=== PATIENT | male | born 1955 | race Caucasian/White ===

== ENCOUNTER 2018-05-03 11:00 | Outpatient (CLI) | payer OTHER ==
--- NOTE | 2018-05-03 13:25 | RAD ---
LUMBAR SPINE 2 VIEWS: HISTORY: Disability claim. COMPARISON: Radiograph 2010. FINDINGS: Severe degenerative changes of the lumbar spine. There is unchanged appearance of the posterior spin al fusion from L4-S1 with intact hardware. There are also anterior screws at L4-5 and L5-S1, similar at the disk spaces. No hardware fracture is appreciated. No acute lumbar spine fracture or malalignment. Severe degenerative disk space height loss at L2-3, L1-2, and T12-L1. IMPRESSION: Chronic findings. No acute abnormality. Severe degenerative change. POS: [facility]
== END 2018-05-03 11:01 | disposition home or self-care (01) ==
LOC: BICRAD 11:00
PROVIDERS: ATTEND Internal Medicine
DX: Z02.71 Encounter for disability determination (principal); M47.816 Spondylosis without myelopathy or radiculopathy, lumbar region; Z98.1 Arthrodesis status
CPT/HCPCS: 72100

== ENCOUNTER 2023-02-14 11:59 | Observation (INO) | payer MEDICARE, SELFPAY ==
[~2023-02-14 11:59] MED LIST: Iopamidol-370 76% 500 ML MDV (1 ML CHARGE) ONE
[2023-02-14] MEDS ORDERED: Acetaminophen 325 MG TAB ONE ×2 (13:08→16:58)
[2023-02-14] MEDS ORDERED: Aspirin Chewable 81 MG TAB ONE (13:08)
[2023-02-14 13:13] LABS: #Eosinphils 0.2 thou/uL (0.0-0.7); #Monocytes 0.6 thou/uL (0.11-0.59); %Basophils 0.5 % (0.0-1.0); %Eosinophils 2.8 % (0.0-10.0); %Lymphocytes 32.3 % (21.0-51.0); %Monocytes 10.6 % (0.0-10.0); %Neutrophils 53.6 % (42.0-75.0); Hematocrit 36.9 % (42.0-52.0); Hemoglobin 12.2 g/dL (14.0-18.0); Mean Corpuscular HGB CONC 33.1 g/dL (32.0-36.0); Mean Corpuscular Hemoglobin 30.4 pg (27.0-31.0); Mean Platelet Volume 11.4 fL (7.4-10.4); Platelet Count 150 10x3/uL (130-400); Red Blood Cell (RBC) Count 4.01 mill/uL (4.70-6.10); White Blood Cell (WBC) Count 5.7 10x3/uL (4.8-10.8)
[2023-02-14 13:36] LABS: Actual Bicarbonate (HCO3v) 24.9 mEq/L (22-28); Base Excess 0.5 mEq/L (-2.0 to +3.0); Chloride (VBG) 103 mmol/L (98-106); Hematocrit-VBG 39 % (42.0-52.0); Hemoglobin (Hb) 13.1 g/dL (12.6-17.4); Potassium (VBG) 4.27 mmol/L (3.70-5.30); Sodium 138 mmol/L (133-146); pH (venous) 7.421 (7.32-7.43)
[2023-02-14 13:41] LABS: ALT (SGPT) 36 U/L (8-55); AST (SGOT) 26 U/L (5-34); Albumin 4.2 g/dL (3.4-4.8); Alkaline Phosphatase 54 U/L (40-110); Anion Gap 13 mmol/L (10-20); BUN (Urea Nitrogen) 34 mg/dL (8.4-25.7); Bilirubin, Total 0.5 mg/dL (0.2-1.2); Calc. Creatinine Clearance 0 mL/min (70-130); Carbon Dioxide 23 mmol/L (23-31); Chloride 104 mmol/L (98-107); Estimated GFR 53; Globulin 2.8 g/dL (2.4-3.5); Glucose 284 mg/dL (80-115); Magnesium 1.9 mg/dL (1.6-2.6); Potassium 3.9 mmol/L (3.5-5.1); Sodium 136 mmol/L (136-145)
[2023-02-14 13:47] LABS: Bacteria/HPF 1+ HPF (None Seen); Bilirubin Negative (Negative); Blood, Urine Negative (Negative); CAUTI Indications for Culture Pelvic or flank pain; Clarity Clear (Clear); Glucose, Urine (Dipstick) Greater than 1000 mg/dL (Negative); Ketone, Urine Negative (Negative); Leukocyte Negative Leu/uL (Negative); Nitrite Negative (Negative); Protein, Urine (Dipstick) 20 mg/dL (Neg-Trace); RBC/HPF 0-3 HPF (0-3); Specific Gravity, Urine 1.023 (1.002-1.036); Squamous Epithelial None Seen HPF (0-3); Urobilinogen Normal mg/dL (Less than 2); WBC/HPF 0-3 HPF (0-3); pH, Urine 5.5 (5.0-9.0)
[2023-02-14 13:48] LABS: Urine Culture Reflex No No
[2023-02-14] MEDS ORDERED: Morphine 4 MG/ML VIAL ONE (13:49)
[2023-02-14] MEDS ORDERED: Nitroglycerin 0.4 MG TAB 1 EACH ONE (13:50)
[2023-02-14 14:01] LABS: Troponin I Less than 0.010 ng/mL (< 0.028)
[2023-02-14] MEDS ORDERED: Nitroglycerin 0.4 MG TAB (25 Tab Bottle) SL PRN (15:45)
[2023-02-14] MEDS ORDERED: Ondansetron ODT 4 MG TAB PO PRN (15:48)
[2023-02-14] MEDS ORDERED: Acetaminophen 325 MG TAB PO PRN (15:48)
[2023-02-14] MEDS ORDERED: Ondansetron PF 4 MG/2 ML Vial IVP PRN (15:48)
[2023-02-14] MEDS ORDERED: Glucagon 1 MG/ML KIT IM PRN (16:06)
[2023-02-14] MEDS ORDERED: HumaLOG 300 UNITS/3 ML VIAL SC PRN (16:06)
[2023-02-14] MEDS ORDERED: Dextrose 50% Abboject 50 ML SYRINGE SLOW IVP PRN (16:06)
[2023-02-14] MEDS ORDERED: Dextrose 5% in Water 1,000 ML IV PRN (16:06)
[2023-02-14 16:29] LABS: Hemoglobin A1c 11.8 % (4.0-6.0)
[2023-02-14 17:51] LABS: Troponin I Less than 0.010 ng/mL (< 0.028)
[2023-02-14] MEDS ORDERED: tiZANidine HCl 4 MG TAB PO SCH (19:30)
[2023-02-14] MEDS ORDERED: tiZANidine HCl 4 MG TAB ONE (19:57)
[2023-02-14 20:05] LABS: Troponin I 0.018 ng/mL (< 0.028)
[2023-02-14] MEDS: HYDROcodone/Acetaminophen 5/325 mg Tablet PO PRN (21:13)
[2023-02-14 23:57] VITALS: BMI 36.1
[2023-02-15] MEDS: HYDROcodone/Acetaminophen 5/325 mg Tablet PO PRN ×5 (02:31→20:55)
[2023-02-15 04:17] LABS: #Eosinphils 0.2 thou/uL (0.0-0.7); #Monocytes 0.4 thou/uL (0.11-0.59); #Neutrophils 1.9 thou/uL (1.40-6.50); %Basophils 0.5 % (0.0-1.0); %Lymphocytes 41.5 % (21.0-51.0); %Monocytes 10.1 % (0.0-10.0); %Neutrophils 43.7 % (42.0-75.0); Hematocrit 33.9 % (42.0-52.0); Hemoglobin 11.2 g/dL (14.0-18.0); Mean Corpuscular Hemoglobin 30.9 pg (27.0-31.0); Mean Corpuscular Volume 93.4 fl (78.0-98.0); Mean Platelet Volume 11.4 fL (7.4-10.4); Platelet Count 130 10x3/uL (130-400); RBC Distribution Width 13.9 % (11.5-14.5); Red Blood Cell (RBC) Count 3.63 mill/uL (4.70-6.10); White Blood Cell (WBC) Count 4.3 10x3/uL (4.8-10.8)
[2023-02-15 04:51] LABS: Anion Gap 13 mmol/L (10-20); BUN (Urea Nitrogen) 22 mg/dL (8.4-25.7); Calc. Creatinine Clearance 111 mL/min (70-130); Calcium 8.2 mg/dL (7.8-10.44); Carbon Dioxide 23 mmol/L (23-31); Cardiac Risk 4.4 (Less than 4.5); Chloride 104 mmol/L (98-107); Cholesterol 101 mg/dl (< 200 Desired); Estimated GFR 71; Glucose 296 mg/dL (80-115); HDL Cholesterol 23 mg/dL (>60 Neg Risk); LDL Cholesterol, Calculated 43 mg/dL; Potassium 3.9 mmol/L (3.5-5.1); Sodium 136 mmol/L (136-145); Triglycerides 173 mg/dL (Less than 150)
[2023-02-15] MEDS: Aspirin Chewable 81 MG TAB PO SCH (08:03)
[2023-02-15] MEDS: HumaLOG 300 UNITS/3 ML VIAL SC PRN (17:39)
[2023-02-16 05:46] LABS: #Eosinphils 0.2 thou/uL (0.0-0.7); #Monocytes 0.5 thou/uL (0.11-0.59); #Neutrophils 2.6 thou/uL (1.40-6.50); %Basophils 0.6 % (0.0-1.0); %Eosinophils 4.2 % (0.0-10.0); %Monocytes 10.1 % (0.0-10.0); %Neutrophils 51.7 % (42.0-75.0); Hematocrit 36.7 % (42.0-52.0); Hemoglobin 12.1 g/dL (14.0-18.0); Mean Corpuscular Hemoglobin 30.3 pg (27.0-31.0); Mean Platelet Volume 11.4 fL (7.4-10.4); RBC Distribution Width 13.7 % (11.5-14.5); Red Blood Cell (RBC) Count 3.99 mill/uL (4.70-6.10); White Blood Cell (WBC) Count 5.1 10x3/uL (4.8-10.8)
[2023-02-16 06:02] LABS: Platelet Count 138 10x3/uL (130-400)
[2023-02-16] MEDS: HumaLOG 300 UNITS/3 ML VIAL SC PRN (06:06)
[2023-02-16] MEDS: HYDROcodone/Acetaminophen 5/325 mg Tablet PO PRN (06:07)
[2023-02-16 06:12] LABS: Anion Gap 12 mmol/L (10-20); BUN (Urea Nitrogen) 12 mg/dL (8.4-25.7); Calc. Creatinine Clearance 141 mL/min (70-130); Calcium 8.5 mg/dL (7.8-10.44); Carbon Dioxide 24 mmol/L (23-31); Chloride 102 mmol/L (98-107); Estimated GFR 93; Glucose 186 mg/dL (80-115); Potassium 3.8 mmol/L (3.5-5.1); Sodium 134 mmol/L (136-145)
[2023-02-16] MEDS ORDERED: Metoprolol Tartrate 50 MG TAB PO SCH (09:00)
[2023-02-16] MEDS ORDERED: Gabapentin 300 MG CAP PO SCH (09:00)
[2023-02-16] MEDS ORDERED: hydrALAZINE 25 MG TAB PO SCH (09:00)
[2023-02-16] MEDS: Aspirin Chewable 81 MG TAB PO SCH (09:30)
[2023-02-16 11:55] VITALS: BP 151/83; TEMP 97.9
[2023-02-17] MEDS ORDERED: FLU VACC QS2023(65UP)/MF59C/PF 60 MCG/0.5 ML SYRINGE IM ONE (09:00)
== END 2023-02-16 12:45 | disposition left against medical advice (07) ==
LOC: ERS 11:59 → ERHOLD 15:40 → 2SW 20:42
PROVIDERS: ADMIT Internal Medicine; ATTEND Internal Medicine
DX: R07.9 Chest pain, unspecified (principal); I10 Essential (primary) hypertension; E66.9 Obesity, unspecified; E11.9 Type 2 diabetes mellitus without complications; Z98.1 Arthrodesis status; Z90.89 Acquired absence of other organs; Z79.82 Long term (current) use of aspirin; Z79.899 Other long term (current) drug therapy; F10.10 Alcohol abuse, uncomplicated; Z79.84 Long term (current) use of oral hypoglycemic drugs; Y90.9 Presence of alcohol in blood, level not specified
CPT/HCPCS: 71045; 71275; 78452; 80048 ×2; 80061; 81001; 82010; 82805; 82962 ×3; 83036; 83735; 84484 ×2; 85025 ×2; 93005; 93017; 93306; 94760 ×4; 96361; 96374; 99285; A9502; 36415; 36416; 80053; 84443; 96372; G0378; J0153; J1650; J2270; Q9967

== ENCOUNTER 2023-07-04 10:29 | Inpatient (IN) | payer MEDICARE, SELFPAY ==
[2023-07-04 11:30] LABS: #Eosinphils 0.3 thou/uL (0.0-0.7); #Monocytes 0.5 thou/uL (0.11-0.59); #Neutrophils 3.6 thou/uL (1.40-6.50); %Basophils 0.5 % (0.0-1.0); %Eosinophils 3.9 % (0.0-10.0); %Lymphocytes 30.6 % (21.0-51.0); %Neutrophils 56.5 % (42.0-75.0); Hematocrit 41.3 % (42.0-52.0); Hemoglobin 13.6 g/dL (14.0-18.0); Mean Corpuscular HGB CONC 32.9 g/dL (32.0-36.0); Mean Corpuscular Hemoglobin 29.6 pg (27.0-31.0); Mean Platelet Volume 11.8 fL (7.4-10.4); Platelet Count 177 10x3/uL (130-400); RBC Distribution Width 13.6 % (11.5-14.5); Red Blood Cell (RBC) Count 4.59 mill/uL (4.70-6.10); White Blood Cell (WBC) Count 6.4 10x3/uL (4.8-10.8)
[2023-07-04 11:57] LABS: ALT (SGPT) 53 U/L (8-55); AST (SGOT) 37 U/L (5-34); Alkaline Phosphatase 56 U/L (40-110); Anion Gap 14 mmol/L (10-20); BUN (Urea Nitrogen) 34 mg/dL (8.4-25.7); Bilirubin, Total 0.5 mg/dL (0.2-1.2); Calc. Creatinine Clearance 0 mL/min (70-130); Calcium 8.8 mg/dL (7.8-10.44); Carbon Dioxide 27 mmol/L (23-31); Chloride 104 mmol/L (98-107); Estimated GFR 55; Globulin 3.5 g/dL (2.4-3.5); Glucose 299 mg/dL (80-115); Potassium 4.5 mmol/L (3.5-5.1); Protein, Total 7.5 g/dL (5.8-8.1); Sodium 140 mmol/L (136-145)
[2023-07-04] MEDS ORDERED: Ketorolac Tromethamine 30 MG (1 mL) VIAL ONE (12:18)
[2023-07-04 12:49] LABS: Bilirubin Negative (Negative); Blood, Urine Negative (Negative); Glucose, Urine (Dipstick) >=1000 mg/dL (Negative); Ketone, Urine Negative (Negative); Leukocyte Negative (Negative); Nitrite Negative (Negative); Protein, Urine (Dipstick) Negative (Neg-Trace); Urobilinogen 0.2 mg/dL (Less than 2)
[2023-07-04 12:55] LABS: Clarity Clear (Clear)
[2023-07-04 12:57] LABS: Bacteria/HPF None Seen HPF (None Seen); CAUTI Indications for Culture Alt mental st,lethar; RBC/HPF 0-3 HPF (0-3); Squamous Epithelial 0-3 HPF (0-3); WBC/HPF 0-3 HPF (0-3)
[2023-07-04 13:03] LABS: Urine Culture Reflex No No
[2023-07-04] MEDS ORDERED: HYDROcodone/Acetaminophen 5/325 mg Tablet ONE (13:51)
[2023-07-04] MEDS ORDERED: Ondansetron ODT 4 MG TAB PO PRN (16:40)
[2023-07-04] MEDS ORDERED: hydrALAZINE 20 MG/ML VIAL SLOW IVP PRN (16:40)
[2023-07-04] MEDS ORDERED: Dextrose 5% in Water 1,000 ML IV PRN (16:57)
[2023-07-04] MEDS ORDERED: Glucagon 1 MG/ML KIT IM PRN (16:57)
[2023-07-04] MEDS ORDERED: Dextrose 50% Abboject 50 ML SYRINGE SLOW IVP PRN (16:57)
[2023-07-04] MEDS: HYDROcodone/Acetaminophen 7.5/325 mg Tablet PO PRN (19:41)
[2023-07-04] MEDS: Atorvastatin Calcium 40 MG TAB PO SCH (19:41)
[2023-07-04] MEDS: Aspirin Chewable 81 MG TAB PO SCH (19:41)
[2023-07-04] MEDS: Sodium Chloride 0.9% 1,000 ML IV SCH (19:41)
[2023-07-04] MEDS: Insulin Regular 300 UNITS/3 ML VIAL SC PRN (19:56)
[2023-07-04] MEDS: Methyl Salicylate/Menthol 85 GM TUBE TOP PRN (22:06)
[2023-07-04 23:14] VITALS: BMI 37.0
[2023-07-05 05:18] LABS: #Eosinphils 0.3 thou/uL (0.0-0.7); #Monocytes 0.5 thou/uL (0.11-0.59); #Neutrophils 2.3 thou/uL (1.40-6.50); %Basophils 0.5 % (0.0-1.0); %Eosinophils 4.8 % (0.0-10.0); %Lymphocytes 42.7 % (21.0-51.0); %Monocytes 9.3 % (0.0-10.0); %Neutrophils 42.2 % (42.0-75.0); Hematocrit 37.2 % (42.0-52.0); Hemoglobin 11.8 g/dL (14.0-18.0); Mean Corpuscular HGB CONC 31.7 g/dL (32.0-36.0); Mean Corpuscular Hemoglobin 29.1 pg (27.0-31.0); Mean Corpuscular Volume 91.9 fl (78.0-98.0); Mean Platelet Volume 11.8 fL (7.4-10.4); Platelet Count 132 10x3/uL (130-400); RBC Distribution Width 13.5 % (11.5-14.5); Red Blood Cell (RBC) Count 4.05 mill/uL (4.70-6.10); White Blood Cell (WBC) Count 5.5 10x3/uL (4.8-10.8)
[2023-07-05 05:35] LABS: Anion Gap 11 mmol/L (10-20); BUN (Urea Nitrogen) 28 mg/dL (8.4-25.7); Calc. Creatinine Clearance 108 mL/min (70-130); Calcium 8.5 mg/dL (7.8-10.44); Carbon Dioxide 26 mmol/L (23-31); Chloride 104 mmol/L (98-107); Cholesterol 78 mg/dl (< 200 Desired); Estimated GFR 66; Glucose 218 mg/dL (80-115); HDL Cholesterol 26 mg/dL (>60 Neg Risk); LDL Cholesterol, Calculated 28 mg/dL; Potassium 3.9 mmol/L (3.5-5.1); Sodium 137 mmol/L (136-145); Triglycerides 122 mg/dL (Less than 150)
[2023-07-05] MEDS: Insulin Regular 300 UNITS/3 ML VIAL SC PRN (06:15)
[2023-07-05] MEDS: Enoxaparin 40 MG (0.4 mL) SYRINGE SC SCH (08:43)
[2023-07-05] MEDS: Aspirin 81 mg Enteric Coated Tablet PO SCH (08:43)
[2023-07-05] MEDS: Lorazepam 2 MG/ML VIAL SLOW IVP SCH ×2 (15:12→15:20)
[2023-07-06] MEDS: HYDROcodone/Acetaminophen 7.5/325 mg Tablet PO PRN (01:15)
[2023-07-06 05:11] LABS: #Eosinphils 0.2 thou/uL (0.0-0.7); #Monocytes 0.5 thou/uL (0.11-0.59); #Neutrophils 2.4 thou/uL (1.40-6.50); %Basophils 0.6 % (0.0-1.0); %Eosinophils 4.1 % (0.0-10.0); %Lymphocytes 37.5 % (21.0-51.0); %Monocytes 9.3 % (0.0-10.0); %Neutrophils 48.1 % (42.0-75.0); Hematocrit 38.6 % (42.0-52.0); Hemoglobin 12.6 g/dL (14.0-18.0); Mean Corpuscular HGB CONC 32.6 g/dL (32.0-36.0); Mean Corpuscular Hemoglobin 29.6 pg (27.0-31.0); Mean Corpuscular Volume 90.8 fl (78.0-98.0); Mean Platelet Volume 11.8 fL (7.4-10.4); Platelet Count 133 10x3/uL (130-400); RBC Distribution Width 13.3 % (11.5-14.5); Red Blood Cell (RBC) Count 4.25 mill/uL (4.70-6.10); White Blood Cell (WBC) Count 5.1 10x3/uL (4.8-10.8)
[2023-07-06 05:36] LABS: Anion Gap 13 mmol/L (10-20); BUN (Urea Nitrogen) 15 mg/dL (8.4-25.7); Calc. Creatinine Clearance 130 mL/min (70-130); Calcium 8.3 mg/dL (7.8-10.44); Carbon Dioxide 23 mmol/L (23-31); Chloride 104 mmol/L (98-107); Estimated GFR 83; Glucose 168 mg/dL (80-115); Potassium 4.1 mmol/L (3.5-5.1); Sodium 136 mmol/L (136-145)
[2023-07-06] MEDS ORDERED: hydrOXYzine 25 MG TAB PO PRN (08:03)
[2023-07-06] MEDS: Gabapentin 300 MG CAP PO SCH (08:15)
[2023-07-06] MEDS: Metoprolol Tartrate 50 MG TAB PO SCH (08:16)
[2023-07-06] MEDS: Pregabalin 50 MG CAP PO SCH (08:26)
[2023-07-06] MEDS: hydrALAZINE 25 MG TAB PO SCH (08:26)
[2023-07-06] MEDS: Empagliflozin 25 MG TAB PO SCH (08:27)
[2023-07-06] MEDS ORDERED: Non-Formulary Item 1 EACH (Pregabalin [Lyrica] 100 MG Cap) PO SCH (09:00)
[2023-07-06] MEDS ORDERED: Non-Formulary Item 1 EACH (Hydralazine Hcl [Hydralazine Hcl] 50 MG Tablet) PO SCH (09:00)
[2023-07-06] MEDS ORDERED: Non-Formulary Item 1 EACH (Dapagliflozin Propanediol [Farxiga] 10 MG Tablet) PO SCH (09:00)
[2023-07-06 16:27] VITALS: TEMP 96
[2023-07-06 18:50] VITALS: BP 177/87
== END 2023-07-06 18:05 | DRG 556 ==
LOC: ERS 10:29 → ERHOLD 14:19 → 2SE 18:18 → OBSVTOIN 07-05 15:57
PROVIDERS: ADMIT Family Medicine; ATTEND Internal Medicine
DX: R29.898 Other symptoms and signs involving the musculoskeletal system (principal); M87.859 Other osteonecrosis, unspecified femur; B19.10 Unspecified viral hepatitis B without hepatic coma; N17.9 Acute kidney failure, unspecified; M16.0 Bilateral primary osteoarthritis of hip; F10.10 Alcohol abuse, uncomplicated; F40.240 Claustrophobia; E11.9 Type 2 diabetes mellitus without complications; E78.5 Hyperlipidemia, unspecified; G89.29 Other chronic pain; M54.12 Radiculopathy, cervical region; I10 Essential (primary) hypertension; Z88.5 Allergy status to narcotic agent; Z79.899 Other long term (current) drug therapy; Z79.84 Long term (current) use of oral hypoglycemic drugs; Z90.89 Acquired absence of other organs; Z98.890 Other specified postprocedural states; Z87.891 Personal history of nicotine dependence; Z91.81 History of falling
CPT/HCPCS: 36415; 36416; 70450; 71045; 72141; 72170; 80048; 80053; 80061; 81001; 84484; 85025; 93005; 93306; 96374; J1650; J1815; J1885; J2060; J7050

== ENCOUNTER → 2024-03-04 | Emergency (ER) | payer MEDICARE | LOC: ERS 14:11 | DX: Z53.21 Procedure and treatment not carried out due to patient leaving prior to being seen by health care provider (principal) | CPT/HCPCS: 71045 ==

== ENCOUNTER 2024-03-05 14:40 | Inpatient (IN) | payer MEDICARE ==
[2024-03-05] MEDS ORDERED: Iopamidol-370 76% 500 ML MDV (1 ML CHARGE) ONE (15:21)
[2024-03-05 15:28] LABS: #Basophils Less than 0.03 10x3/uL (0.0-0.2); %Basophils 0.2 % (0.0-1.0); %Eosinophils 1.1 % (0.0-10.0); %Lymphocytes 22.2 % (21.0-51.0); %Monocytes 9.1 % (0.0-10.0); %Neutrophils 67.2 % (42.0-75.0); Hematocrit 40.3 % (42.0-52.0); Hemoglobin 13.7 g/dL (14.0-18.0); Mean Corpuscular Hemoglobin 29.8 pg (27.0-31.0); Mean Corpuscular Volume 87.8 fL (78.0-98.0); Mean Platelet Volume 11.1 fL (7.4-10.4); Platelet Count 193 10x3/uL (130-400); RBC Distribution Width 12.8 % (11.5-14.5); Red Blood Cell (RBC) Count 4.59 mill/uL (4.70-6.10)
[2024-03-05 15:44] LABS: CRP,High Sensitivity (Inhouse) 6.11 mg/dL (< or = 0.5)
[2024-03-05 15:45] LABS: ALT (SGPT) 33 U/L (8-55); AST (SGOT) 30 U/L (5-34); Albumin 3.7 g/dL (3.4-4.8); Alkaline Phosphatase 55 U/L (40-110); Anion Gap 14 mmol/L (10-20); BUN (Urea Nitrogen) 17 mg/dL (8.4-25.7); Calc. Creatinine Clearance 0 mL/min (70-130); Calcium 9.4 mg/dL (7.8-10.44); Carbon Dioxide 22 mmol/L (23-31); Chloride 101 mmol/L (98-107); Estimated GFR 76; Globulin 4.2 g/dL (2.4-3.5); Glucose 227 mg/dL (83-110); Potassium 3.8 mmol/L (3.5-5.1); Protein, Total 7.9 g/dL (5.8-8.1); Sodium 133 mmol/L (136-145)
[2024-03-05] MEDS ORDERED: Cefepime 2 GM VIAL ONE (16:13)
[2024-03-05] MEDS ORDERED: Sodium Chloride 0.9% 100 ML ONE (16:13)
[2024-03-05 17:04] LABS: Troponin I Less than 0.010 ng/mL (< 0.028)
[2024-03-05] MEDS ORDERED: Enoxaparin 30 MG (0.3 mL) SYRINGE ONE (18:07)
[2024-03-05] MEDS ORDERED: Enoxaparin 100 MG (1 mL) SYRINGE ONE (18:07)
[2024-03-05] MEDS ORDERED: hydrOXYzine 25 MG TAB PO PRN (20:11)
[2024-03-05] MEDS ORDERED: Dextrose 5% in Water 1,000 ML IV PRN (20:12)
[2024-03-05] MEDS ORDERED: Glucagon 1 MG/ML KIT IM PRN (20:12)
[2024-03-05] MEDS ORDERED: Dextrose 50% Abboject 50 ML SYRINGE SLOW IVP PRN (20:12)
[2024-03-05] MEDS ORDERED: Ondansetron PF 4 MG/2 ML Vial IVP PRN (20:12)
[2024-03-05] MEDS ORDERED: Insulin Lispro 100 UNIT/ML 10 ML VIAL SC PRN ×2 (20:12)
[2024-03-05] MEDS ORDERED: Acetaminophen 325 MG TAB PO PRN (20:12)
[2024-03-05] MEDS ORDERED: Acetaminophen 500 MG TAB ONE (21:29)
[2024-03-05 22:00] VITALS: BMI 34.0
[2024-03-05] MEDS: Vancomycin (BATCH) 2.5 GM in Premix 1 BAG IVPB SCH (22:03)
[2024-03-05] MEDS: Gabapentin 300 MG CAP PO SCH (22:47)
[2024-03-05] MEDS: hydrALAZINE 25 MG TAB PO SCH (22:48)
[2024-03-05] MEDS: Pregabalin 50 MG CAP PO SCH (22:48)
[2024-03-05] MEDS: Piperacillin/Tazobactam 3.375 GM in Sodium Chloride 0.9% 100 ML IVPB SCH (22:49)
[2024-03-05] MEDS: Metoprolol Tartrate 50 MG TAB PO SCH (22:49)
[2024-03-06 00:07] LABS: Amphetamine Detected (NotDetected); Barbiturates Screen Not Detected (NotDetected); Benzodiazepine Screen Not Detected (NotDetected); Cocaine Metabolite Screen Not Detected (NotDetected); Methadone Not Detected (NotDetected); Methamphetamine Detected (NotDetected); Opiate Screen Not Detected (NotDetected); Oxycodone Screen Not Detected (NotDetected); Phencyclidine (PCP) Not Detected (NotDetected); THC/Cannabinoid Screen Detected (NotDetected); Tricyclic Screen Not Detected (NotDetected)
[2024-03-06] MEDS: Piperacillin/Tazobactam 3.375 GM in Sodium Chloride 0.9% 100 ML IVPB SCH (02:08)
[2024-03-06 05:46] LABS: #Basophils 0.03 10x3/uL (0.0-0.2); %Basophils 0.5 % (0.0-1.0); %Eosinophils 3.1 % (0.0-10.0); %Lymphocytes 37.3 % (21.0-51.0); %Neutrophils 46.9 % (42.0-75.0); Hematocrit 37.2 % (42.0-52.0); Hemoglobin 12.3 g/dL (14.0-18.0); Mean Corpuscular HGB CONC 33.1 g/dL (32.0-36.0); Mean Corpuscular Hemoglobin 29.4 pg (27.0-31.0); Mean Corpuscular Volume 88.8 fL (78.0-98.0); Mean Platelet Volume 11.7 fL (7.4-10.4); Platelet Count 156 10x3/uL (130-400); Red Blood Cell (RBC) Count 4.19 mill/uL (4.70-6.10)
[2024-03-06 05:58] LABS: Anion Gap 11 mmol/L (10-20); BUN (Urea Nitrogen) 11 mg/dL (8.4-25.7); Calc. Creatinine Clearance 112 mL/min (70-130); Calcium 8.6 mg/dL (7.8-10.44); Carbon Dioxide 25 mmol/L (23-31); Chloride 105 mmol/L (98-107); Estimated GFR 78; Glucose 145 mg/dL (83-110); Potassium 3.8 mmol/L (3.5-5.1); Sodium 137 mmol/L (136-145)
[2024-03-06] MEDS: Atorvastatin Calcium 40 MG TAB PO SCH (08:19)
[2024-03-06] MEDS: VANCOMYCIN 1.25 GM/250 ML BAG 1.25 GM in Premix 1 BAG IVPB SCH (08:19)
[2024-03-06] MEDS: Enoxaparin 120 MG/0.8 ML SYRINGE SC SCH (08:19)
[2024-03-06] MEDS: traMADol HCl 50 MG TAB PO PRN (08:20)
[2024-03-06] MEDS: metFORMIN 500 MG TAB PO SCH (08:20)
[2024-03-06] MEDS: Dapagliflozin Propanediol 10 MG TAB PO SCH (08:20)
[2024-03-06] MEDS: Pioglitazone HCl 45 MG TAB PO SCH (09:23)
[2024-03-06] MEDS ORDERED: Morphine 2 MG/ML VIAL SLOW IVP PRN (11:31)
[2024-03-06] MEDS ORDERED: Magnevist 469MG/ML 20 ML VIAL ONE (11:55)
[2024-03-06] MEDS ORDERED: hydrALAZINE 20 MG/ML VIAL SLOW IVP PRN (14:50)
[2024-03-07 05:59] LABS: #Basophils Less than 0.03 10x3/uL (0.0-0.2); %Basophils 0.3 % (0.0-1.0); %Eosinophils 3.4 % (0.0-10.0); %Lymphocytes 29.3 % (21.0-51.0); %Monocytes 9.4 % (0.0-10.0); %Neutrophils 57.3 % (42.0-75.0); Hematocrit 37.1 % (42.0-52.0); Hemoglobin 12.1 g/dL (14.0-18.0); Mean Corpuscular HGB CONC 32.6 g/dL (32.0-36.0); Mean Corpuscular Hemoglobin 29.2 pg (27.0-31.0); Mean Corpuscular Volume 89.6 fL (78.0-98.0); Mean Platelet Volume 11.7 fL (7.4-10.4); Platelet Count 166 10x3/uL (130-400); RBC Distribution Width 13.1 % (11.5-14.5); Red Blood Cell (RBC) Count 4.14 mill/uL (4.70-6.10)
[2024-03-07 06:11] LABS: Hemoglobin A1c 13.5 % (4.0-6.0)
[2024-03-07 06:12] LABS: ALT (SGPT) 21 U/L (8-55); AST (SGOT) 15 U/L (5-34); Alkaline Phosphatase 47 U/L (40-110); Anion Gap 12 mmol/L (10-20); BUN (Urea Nitrogen) 12 mg/dL (8.4-25.7); Bilirubin, Total 0.3 mg/dL (0.2-1.2); Calc. Creatinine Clearance 111 mL/min (70-130); Calcium 8.6 mg/dL (7.8-10.44); Carbon Dioxide 26 mmol/L (23-31); Chloride 105 mmol/L (98-107); Estimated GFR 77; Globulin 3.4 g/dL (2.4-3.5); Glucose 181 mg/dL (83-110); Potassium 3.6 mmol/L (3.5-5.1); Protein, Total 6.4 g/dL (5.8-8.1); Sodium 139 mmol/L (136-145)
[2024-03-07 21:31] VITALS: BMI 34.0
[2024-03-08 06:24] LABS: Vancomycin, Random 21.3 ug/mL (See Comment)
[2024-03-08] MEDS: FLU (Fluad Triv) TS24-25 (65UP)/MF59C/PF 45 MCG/0.5 ML Syringe IM ONE (08:26)
[2024-03-08 08:34] VITALS: TEMP 98.1
[2024-03-08 11:59] VITALS: BP 156/87
[2024-03-08] MEDS ORDERED: Vancomycin 1 GM in Premix 1 BAG IVPB SCH (21:00)
[2024-03-08] MEDS ORDERED: Vancomycin (BATCH) 1.5 GM in Premix 1 BAG IVPB SCH (21:00)
== END 2024-03-08 14:19 | disposition home or self-care (01) | DRG 300 ==
LOC: ERS 14:40 → T4-A 20:00
PROVIDERS: ADMIT Hospitalist; ATTEND Internal Medicine
DX: I82.401 Acute embolism and thrombosis of unspecified deep veins of right lower extremity (principal); L03.115 Cellulitis of right lower limb; F15.10 Other stimulant abuse, uncomplicated; E11.628 Type 2 diabetes mellitus with other skin complications; E88.09 Other disorders of plasma-protein metabolism, not elsewhere classified; E78.5 Hyperlipidemia, unspecified; I10 Essential (primary) hypertension; E11.65 Type 2 diabetes mellitus with hyperglycemia; Z98.890 Other specified postprocedural states; Z90.89 Acquired absence of other organs; Z87.891 Personal history of nicotine dependence; Z79.899 Other long term (current) drug therapy; Z79.4 Long term (current) use of insulin
CPT/HCPCS: 36415; 36416; 70450; 80048; 80053; 80202; 80306; 82565; 83036; 83605; 83880; 84484; 85025; 86141; 87040; 93005; 96365; 96366; 96367; 96372; 97139; J0692; J1650; J2543; J3370; Q9967

== ENCOUNTER 2024-03-20 22:08 | Emergency (ER) | payer MEDICARE ==
[2024-03-25 15:19] LABS: ALT (SGPT) 80 U/L (8-55); AST (SGOT) 51 U/L (5-34); Albumin 3.5 g/dL (3.4-4.8); Alkaline Phosphatase 51 U/L (40-110); Anion Gap 15 mmol/L (10-20); BUN (Urea Nitrogen) 39 mg/dL (8.4-25.7); Bilirubin, Total 0.5 mg/dL (0.2-1.2); CK (CPK) 118 U/L (30-200); Calc. Creatinine Clearance 0 mL/min (70-130); Carbon Dioxide 22 mmol/L (23-31); Chloride 111 mmol/L (98-107); Estimated GFR 55; Globulin 3.6 g/dL (2.4-3.5); Glucose 314 mg/dL (83-110); Lipase 84 U/L (8-78); Magnesium 2.1 mg/dL (1.6-2.6); Potassium 4.9 mmol/L (3.5-5.1); Protein, Total 7.1 g/dL (5.8-8.1); Sodium 143 mmol/L (136-145); Troponin I Less than 0.010 ng/mL (< 0.028)
[2024-03-25 15:24] LABS: Clarity Clear (Clear); Leukocyte Negative Leu/uL (Negative); Nitrite Negative (Negative); Protein, Urine (Dipstick) Negative (Neg-Trace); Specific Gravity, Urine 1.025 (1.002-1.036)
[2024-03-25 15:25] LABS: Bacteria/HPF None Seen HPF (None Seen); Bilirubin Negative (Negative); Blood, Urine Negative (Negative); Glucose, Urine (Dipstick) Greater than 1000 mg/dL (Negative); Ketone, Urine Negative (Negative); RBC/HPF None Seen HPF (0-3); Squamous Epithelial None Seen HPF (0-3); Urobilinogen Normal mg/dL (Less than 2); WBC/HPF 0-3 HPF (0-3)
[2024-03-26 08:43] LABS: Hemoglobin 11.7 g/dL (14.0-18.0); Mean Corpuscular HGB CONC 33.4 g/dL (32.0-36.0); Mean Corpuscular Hemoglobin 30.1 pg (27.0-31.0); Platelet Count 181 10x3/uL (130-400); RBC Distribution Width 13.6 % (11.5-14.5); Red Blood Cell (RBC) Count 3.89 mill/uL (4.70-6.10)
[2024-03-26 08:44] LABS: #Basophils 0.03 10x3/uL (0.0-0.2); #Eosinophils 0.15 10x3/uL (0.0-0.7); #Monocytes 0.54 10x3/uL (0.11-0.59); #Neutrophils 3.43 10x3/uL (1.40-6.50); %Basophils 0.5 % (0.0-1.0); %Eosinophils 2.3 % (0.0-10.0); %Lymphocytes 33.6 % (21.0-51.0); %Monocytes 8.4 % (0.0-10.0); %Neutrophils 53.6 % (42.0-75.0); Mean Platelet Volume 12.2 fL (7.4-10.4)
[2024-03-26 08:45] LABS: INR-International Normal Ratio 1.1; PTT 43.2 sec (22.9-36.1)
== END 2024-03-21 17:21 | disposition home or self-care (01) ==
LOC: ERS 22:08
DX: S00.93XA Contusion of unspecified part of head, initial encounter (principal); E11.9 Type 2 diabetes mellitus without complications; I10 Essential (primary) hypertension; W19.XXXA Unspecified fall, initial encounter; Z55.6 Problems related to health literacy
CPT/HCPCS: 70450; 71045; 72125; 80053; 81003; 82550; 83690; 83735; 84484; 85025; 85610; 85730; 93005